=== PATIENT | male | born 1990 | race Caucasian/White ===

== ENCOUNTER 2025-03-28 11:03 | Emergency (ER) | payer OTHER, SELFPAY ==
[2025-03-28 11:10] VITALS: BP 132/94; PULSE 81; TEMP 36.9; O2SAT 96; BMI 37.6
--- NOTE | 2025-03-28 11:14 | XR_ITS ---
The [address] [address] Patient Name: ALEXA ARANDA MRN: [id number] date: 1990 Sex: M Assigned Patient Location: ER Current Patient Location: ER Accession/Order Number: [id number] Exam Date: 03/28/2025 11:20 Report Date: 03/28/2025 11:41 At the request of: DAVID EWING MD Procedure: XR foot LT min 3V CLINICAL DATA: Patient stepped on rock 2 days ago and rolled ankle. Dorsal pain and swelling. LEFT ANKLE - 3 views COMPARISON: None AP, lateral and oblique views were obtained. A chronic-appearing corticated bony ossicle is present near the tip of the medial malleolus. There is no definite acute fracture or dislocation. The talar dome is intact. There is diffuse soft tissue swelling. XR/XR foot LT min 3V IMPRESSION: NO ACUTE BONY INJURY. ? FOOT - 3 views COMPARISON: None AP, lateral and oblique views were obtained. There is no evidence of fracture or dislocation. There are no significant soft tissue abnormalities. IMPRESSION: NO ACUTE BONY INJURY. Impression dictated by: Doris Emerson M.D. 03/28/2025 11:41 AM Dictation Location: [place] [address] Electronically authenticated by: [id number] Y Date: 03/28/2025 11:41
--- NOTE | 2025-03-28 11:14 | XR_ITS ---
The [address] [address] Patient Name: ALEXA ARANDA MRN: [id number] date: 1990 Sex: M Assigned Patient Location: ER Current Patient Location: ER Accession/Order Number: [id number] Exam Date: 03/28/2025 11:20 Report Date: 03/28/2025 11:41 At the request of: DAVID EWING MD Procedure: XR foot LT min 3V CLINICAL DATA: Patient stepped on rock 2 days ago and rolled ankle. Dorsal pain and swelling. LEFT ANKLE - 3 views COMPARISON: None AP, lateral and oblique views were obtained. A chronic-appearing corticated bony ossicle is present near the tip of the medial malleolus. There is no definite acute fracture or dislocation. The talar dome is intact. There is diffuse soft tissue swelling. XR/XR ankle LT min 3V IMPRESSION: NO ACUTE BONY INJURY. ? FOOT - 3 views COMPARISON: None AP, lateral and oblique views were obtained. There is no evidence of fracture or dislocation. There are no significant soft tissue abnormalities. IMPRESSION: NO ACUTE BONY INJURY. Impression dictated by: Doris Emerson M.D. 03/28/2025 11:41 AM Dictation Location: [place] [address] Electronically authenticated by: [id number] Y Date: 03/28/2025 11:41
[2025-03-28] MEDS: KETOROLAC TROMETHAMINE 60 MG/2 ML VIAL IM (12:47)
--- NOTE | 2025-03-28 12:57 | ED.LOWEXI1 ---
HPI HPI - Extremity Injury (Lower) General Chief Complaint: Extremity Injury, Lower Stated Complaint: BWC; L ANKLE PAIN/INJURY Time Seen by Provider: 03/28/25 11:10 Source: patient Mode of arrival: walk-in Limitations: no limitations History of Present Illness HPI Narrative: The patient is coming to the ER with a left ankle injury that he sustained while descending from his truck at work, apparently after hitting the floor he twisted his ankle, this happened almost on Monday and today is Monday, the patient mentioned that since then he has not been able to put weight on his left foot he is mostly putting weight on the front of the foot only and walking with limping Related Data Previous Rx's ?Medication ?Instructions ?Recorded diclofenac sodium 75 mg 75 mg PO BID PRN pain #20 tabs 03/28/25 tablet,delayed release Allergies Allergy/AdvReac Type Severity Reaction Status Date / Time No Known Drug Allergies Allergy Verified 03/28/25 11:09 Opioid HPI Opioid Management Most Recent Pain and Opioid Data: Last Pain Scale 2 Today, 12:47 Last SEP Pain Assessment Today, 12:47 Review of Systems ROS Status of ROS 10 or more systems reviewed and unremarkable except as noted in history and below PFSH PFSH Social History Little interest or pleasure in doing things: not at all Feeling down, depressed, or hopeless: not at all Exam Narrative Exam Narrative: Nurses notes and vital signs reviewed and patient is not hypoxic. Lower extremity exam: The patient left lower extremity shows significant edema at the ankle with the medial malleolus tenderness The patient have the swelling extending to the midfoot There is no ecchymosis and the full range of movement is preserved with no vascular injury detected General: Well-appearing and in no apparent distress. Skin: Warm, dry, no pallor noted. No rash. Head: Normocephalic, atraumatic. Neurological: A&O x4. No cranial nerve dysfunction observed. No truncal ataxia. Moves all extremities. Sensation intact. Psychiatric: Cooperative and interactive. Normal mood and affect. Constitutional Vital Signs, click to edit/add: Last Vital Signs Temp 98.4 F 03/28/25 11:10 Pulse 81 03/28/25 11:10 Resp 18 03/28/25 11:10 BP 132/94 H 03/28/25 11:10 Pulse Ox 96 03/28/25 11:10 O2 Del Method Room Air 03/28/25 11:10 Course Vital Signs Vital signs: Vital Signs Temperature 98.4 F 03/28/25 11:10 Pulse Rate 81 03/28/25 11:10 Respiratory Rate 18 03/28/25 11:10 Blood Pressure 132/94 H 03/28/25 11:10 Pulse Oximetry 96 03/28/25 11:10 Oxygen Delivery Method Room Air 03/28/25 11:10 Temperature 98.4 F 03/28/25 11:10 Pulse Rate 81 03/28/25 11:10 Respiratory Rate 18 03/28/25 11:10 Blood Pressure 132/94 H 03/28/25 11:10 Pulse Oximetry 96 03/28/25 11:10 Oxygen Delivery Method Room Air 03/28/25 11:10 MDM - Extremity Injury (Lower) MDM Narrative Medical decision making narrative: X-ray of the patient ankle as well as the x-ray of the left foot showed no acute pathology except for the soft tissue swelling The patient soft tissue swelling that is extensive in addition to the fact that he is not able to put weight on his left ankle for that he was provided with crutches as well as Jr wrap and Toradol in the ER Discharged home with instruction to rest his ankle for the next week in addition to elevation and rest the patient to follow-up with podiatry as outpatient Patient also mentioned that it is a work injury and I offered him to have a walking boot although the patient does have a significant swelling but the patient mentioned that he cannot even work with the walking boot Patient to follow-up with occupational health in [place] Discharge Plan Discharge Chief Complaint: Extremity Injury, Lower Clinical Impression: Ankle sprain and strain Patient Disposition: Home, Self-Care Time of Disposition Decision: 12:34 Condition: Good Prescriptions / Home Meds: New diclofenac sodium 75 mg tablet,delayed release (DR/EC) 75 mg PO BID PRN (Reason: pain) Qty: 20 0RF Print Language: Luxembourgish Instructions: Ankle Sprain (ED), Crutch Instructions (ED) Referrals: Physician,Non-Staff, MD [Primary Care Provider] - 1 week Rudy Bledsoe DPM [Physician, Podiatry] - 1 week Discharge Date/Time: 03/28/25 12:55
== END 2025-03-28 12:55 | disposition home or self-care (01) ==
PROVIDERS: Emergency Provider Emergency Medicine
DX: S93.402A Sprain of unspecified ligament of left ankle, initial encounter (principal); S96.912A Strain of unspecified muscle and tendon at ankle and foot level, left foot, initial encounter; X50.1XXA Overexertion from prolonged static or awkward postures, initial encounter
CPT/HCPCS: 73610; 73630; 96372; 99284; J1885